=== PATIENT | female | born 1990 | race Caucasian/White ===

== ENCOUNTER 2017-07-11 23:42 | Emergency (ER) | payer SELFPAY ==
[~2017-07-11] VITALS: Ht 165.1 cm; Wt 81.0 kg
[2017-07-11 23:45] VITALS: Ht 165.1 cm; Wt 81.0 kg
== END 2017-07-12 00:45 | disposition left against medical advice (07) ==
LOC: FTE 23:42
DX: Z53.21 Procedure and treatment not carried out due to patient leaving prior to being seen by health care provider (principal)

== ENCOUNTER 2019-04-18 11:05 | Inpatient (IN) | payer MEDICAID ==
[~2019-04-18] VITALS: Ht 160 cm; Wt 89.0 kg
[~2019-04-18 11:05] MED LIST: CEPH-443 PO; PREN-93 PO
[2019-04-18 11:28] VITALS: BP 120/75; PULSE 84; RESP 18
[2019-04-18 11:29] VITALS: Ht 160 cm; Wt 89.0 kg
--- NOTE | 2019-04-18 12:02 | TRIAGE ---
OB Triage Datetime Report Generated by CPN: 04/18/2019 12:01 Datetime: 04/18/2019 11:31 Vaginal Exam Dilatation (cms): 1.0 Effacement (%): 50 Station: -2 Exam By: JES Vaginal Bleeding: None Cervix, Consistency: Moderate Cervix, Position: Posterior Datetime: 04/18/2019 11:25 Assessment Type: Triage Maternal Assessment Level of Consciousness: Keenly Alert, Responsive DTR's/Clonus: DTRs 2+; No Clonus Headache: Denies Blurred Vision: No Respiratory Effort: Unlabored; Regular Rhythm; Equal Expansion Breath Sounds, Left: Clear and Equal Breath Sounds, Right: Clear and Equal Nausea/Vomiting: Denies RUQ Epigastric Pain: Denies Lower Extremities Edema: None Degree: None Upper Extremities Edema: None Degree: None Facial Edema: None Fall Risk Assessment History of Falling: (0) No Secondary Diagnosis: (0) No Ambulatory Aid: (0) Bedrest/Nurse Assist IV Therapy: (0) No Gait: (0) Normal/Bedrest/Immobile Mental Status: (0) Oriented to Own Ability Fall Score: 0 Fall Risk Score Definition: No Risk: No action required Datetime: 04/18/2019 11:24 Time of Arrival: 04/18/2019 11:02 EGA: 39.3 Arrived By: Ambulatory Arrived From: Home Chief Complaint: PT. HERE C/O UC'S SINCE 0500 Movement: Present Contractions: Irregular Rupture of Membranes: Denies Vaginal Bleeding: Scant Vaginal Discharge: Denies Recent Sexual Intercouse: Denies Abdominal Trauma: Not Applicable Patient Complaints: Contractions; Cramping; Back Pain Time Provider Notified: 04/18/2019 11:58 Provider Notified: REBECCA Initial Plan: SVE/EFM Datetime: 04/18/2019 11:23 Labor Evaluation Monitor Mode: External Heart Rate Monitor Mode: External US
[2019-04-18] MEDS ORDERED: OXYTOCIN 30 UNITS/LR 500 ML IV SCH (12:30)
[2019-04-18] MEDS ORDERED: METHYLERGONOVINE 0.2 MG INJ IM PRN (12:30)
[2019-04-18] MEDS ORDERED: CARBOPROST 250 MCG INJ IM PRN (12:30)
[2019-04-18] MEDS ORDERED: CEFAZOLIN 2 GM/50 ML (PMX) 50 ML IVPB SCH (12:30)
[2019-04-18] MEDS ORDERED: OXYTOCIN 30 UNITS/LR 500 ML IV PRN (12:30)
[2019-04-18] MEDS ORDERED: MISOPROSTOL 200 MCG TAB PR PRN (12:30)
[2019-04-18] MEDS: BUTORPHANOL 2 MG INJ IV PRN ×2 (14:20→17:16)
[2019-04-18] MEDS: LACTATED RINGER'S 1,000 ML IV SCH ×2 (16:47→20:12)
[2019-04-18] MEDS ORDERED: TERBUTALINE 1 MG/ML INJ SC ONE (17:30)
--- NOTE | 2019-04-18 18:36 | HP ---
Date/Time of Note Date/Time of Note DATE: 04/18/19 TIME: 18:34 OB - History Hx of Present Free Text/Dictation term pregnacy in labor with previous c/s Care: Good Care Ultrasounds: Normal mid trimester US Obstetrical Complications: None Medical Complications: None Past Family/Social History * Past Medical, Surgical, Family and Obstetric Histories reviewed from chart. OB Admission Exam Vital Signs Vital Signs Vital Signs Date Temp Pulse Resp B/P (MAP) Pulse Ox O2 O2 Flow FiO2 Time Delivery Rate 04/18/19 98.1 84 18 120/75 Room Air 11:28 (90) Physical Exam HEENT: WNL Heart: Rhythm Normal Lungs: Clear, Equal Abdomen: WNL Extremities: Normal Reflexes: Normal Cervical Dilatation: 2cm Effacement: 25% Station: -3 Membranes: Intact Heart Rate: 130's Accelerations: Accelerations Present Decelerations: No Decelerations Varibility: Moderate Contractions on Admission: 6-10 Minutes Apart Intensity: Moderate Last 72 hours Lab Results CBC & BMP 04/18/19 13:00 OB Assessment/Plan Reason for admission: active labor Plan: Section NANCY FERNANDEZ MD Apr 18, 2019 18:36
--- NOTE | 2019-04-18 18:44 | PREAC ---
Date/Time of Note Date/Time of Note DATE: 04/18/19 TIME: 18:42 Anesthesia Eval and Record Evaluation Time Pre-Procedure Interview DATE: 04/18/19 TIME: 18:42 Age 29 Sex female NPO: 8 hrs Preoperative diagnosis IUP Planned procedure Repeat Csection Past Medical History Past Medical History: Includes GI: Obesity : : Surgery & Anesthesia Issues No known issue Meds Anticoagulation: No Beta Sangita within 24 hr: No Reason Beta Sangita not given: Pt. not on B-Sangita Reported Medications Vit No.124/Iron/FA ( Vitamin Tablet) 1 Each Tablet, 1 EACH PO DAILY, TAB 04/18/19 Current Medications Lactated Ringer's 1,000 ml @ 125 mls/hr Q8H IV Last administered on 04/18/19at 16:47; Admin Dose 125 MLS/HR; Start 04/18/19 at 12:12 Cefazolin Sodium/ Dextrose 50 ml @ 100 mls/hr ONCE IVPB ; Start 04/18/19 at 12:30 Oxytocin/Lactated Ringer's 500 ml @ 125 mls/hr POST IV ; Start 04/18/19 at 12:30 Oxytocin/Lactated Ringer's 500 ml @ 0 mls/hr ONCE PRN IV .VAGINAL BLEEDING; Start 04/18/19 at 12:30 Methylergonovine Maleate (Methergine) 0.2 mg ONCE PRN IM .VAGINAL BLEEDING; Start 04/18/19 at 12:30 Carboprost Tromethamine (Hemabate) 250 mcg ONCE PRN IM .VAGINAL BLEEDING; Start 04/18/19 at 12:30 Misoprostol (Cytotec) 1,000 mcg ONCE PRN AR .VAGINAL BLEEDING; Start 04/18/19 at 12:30 Butorphanol Tartrate (Stadol) 2 mg Q3H PRN IV PAIN Last administered on 9at 17:16; Admin Dose 2 MG; Start 04/18/19 at 12:30 Meds reviewed: Yes Allergies Coded Allergies: Sulfa (Sulfonamide Antibiotics) (Verified Allergy, Intermediate, SWELLING/RASH, 04/18/19) Allergies Reviewed: Yes Labs/Studies Labs Reviewed: Reviewed by anesthesiologist Result Diagram: 04/18/19 1300 Laboratory Tests 04/18/19 13:00 Blood Bank Test 04/18/19 13:00 Antibody Screen NEGATIVE Blood Type O POSITIVE Rh Immune Globulin Candidate NO test: Positive Studies: ECG Pre-procedure Exam Last vitals Vital Signs Date Temp Pulse Resp B/P (MAP) Pulse Ox O2 O2 Flow FiO2 Time Delivery Rate 04/18/19 98.1 84 18 120/75 Room Air 11:28 (90) Airway: Adequate mouth opening, Adequate thyromental dist Mallampati: Mallampati II Teeth: Normal Lung: Normal Heart: Normal ASA Physical Status ASA physical status: 2 Emergency: None Planned Anesthetic Neuraxial: Spinal Planned Pain Management Sub-arachniod narcotics, Parenteral pain med Pre-operative Attestations Prior to commencing anesthesia and surgery, the patient was re-evaluated, there was verification of: *The patient's identity *The results of appropriate recent lab work and preoperative vital signs *The above evaluation not changing prior to induction *Anesthetic plan, risk benefits, alternative and complications discussed with patient/family; questions answered; patient/family understands, accepts and wi shes to proceed. JORDAN GIBBS MD Apr 18, 2019 18:44
[2019-04-18] MEDS ORDERED: OXYTOCIN 30 UNITS/LR 500 ML BAG IV ONE (18:46)
[2019-04-18] MEDS ORDERED: OXYTOCIN 10 UNIT INJ ONE ×2 (18:46→19:18)
[2019-04-18] MEDS ORDERED: ONDANSETRON 4 MG INJ ONE (18:46)
[2019-04-18] MEDS ORDERED: morphine SULFATE/PF (10 MG/10 ML) INJ ONE (18:46)
[2019-04-18] MEDS ORDERED: PHENYLephrine 10 MG INJ ONE (19:03)
--- NOTE | 2019-04-18 19:39 | OPR ---
Operative Report Planned Procedure Procedure date Apr 18, 2019 Procedure(s) repeat c/s in labor Performed by see signature line Build Master: JARROD MERLOS MD Pre-procedure diagnosis repeat c/s [id number] Anesthesia Type: [id number] spinal Post-Procedure Post-procedure diagnosis same as pre op Findings Live Baby [], Apgars [] and [], weight [], position [], [] presentation []cord. Estimated Blood Loss: 600 - 700 mls Specimen(s) none Grafts/Implant(s) none Complication(s) none Procedure Description Under satisfactory [spinal ] anesthesia, the patient was prepped and draped and placed in a supine position, tilted to the left. Pfannenstiel incision was made, carried through the subcutaneous tissue. Bleeders brought under control with electrocautery. Fascia incised to the length of the incision. Rectus muscles from the fascia, divided midline. Peritoneum exposed, entered through a transverse incision. Exploration of abdomen revealed gravid uterus. Bladder flap was developed. Transverse incision was made in the lower segment of the uterus. Amniotic sac ruptured. [] amniotic fluid noted. [] Nasal oropharyngeal suction was performed. The baby was handed to the team for immediate attention. The placenta was delivered manually intact. Uterine cavity was cleaned with wet sponge and drainage established. Uterus closed in 2 layers us ing [] in continuous fashion. Peritoneal cavity irrigated with warm saline. Sponge, needle and instrument count reported to be correct. Abdominal peritoneum closed with one monocryl[] continuously. Rectus muscle approximated with []. Fascia closed with one monocryl[], and skin closed with cinthia. Estimated blood loss 700[]mL. Urine bag contained []mL of urine NANCY FERNANDEZ MD Apr 18, 2019 19:39
--- NOTE | 2019-04-18 19:53 | PAC ---
Date/Time of Note Date/Time of Note DATE: 04/18/19 TIME: 19:52 Post-Anesthesia Notes Post-Anesthesia Note Last documented vital signs Vital Signs Date Temp Pulse Resp B/P (MAP) Pulse Ox O2 O2 Flow FiO2 Time Delivery Rate 04/18/19 98.1 84 18 120/75 Room Air 11:28 (90) Activity: WNL Respiratory function: WNL Cardiovascular function: WNL Mental status: Baseline Pain reasonably controlled: Yes Hydration appropriate: Yes Nausea/Vomiting absent: Yes Comments BP:112/56, P:78, Spo2:100%, T:98,9 JORDAN GIBBS MD Apr 18, 2019 19:53
[2019-04-18] MEDS ORDERED: NALOXONE (0.4 MG/ML) INJ IV PRN (20:00)
[2019-04-18] MEDS ORDERED: morphine 2 MG INJ IV PRN (20:00)
[2019-04-18] MEDS ORDERED: ONDANSETRON 4 MG INJ IV PRN (20:00)
[2019-04-18] MEDS ORDERED: DIPHENHYDRAMINE 50 MG INJ IV PRN (20:00)
[2019-04-18] MEDS: KETOROLAC 30 MG INJ IV PRN (22:00)
[2019-04-19 00:30] VITALS: BP 114/59; PULSE 85; RESP 19
[2019-04-19] MEDS ORDERED: OXYTOCIN 30 UNITS/LR 500 ML IV SCH (00:48)
[2019-04-19] MEDS ORDERED: LACTATED RINGER'S 1,000 ML IV SCH (00:48)
[2019-04-19] MEDS ORDERED: MISOPROSTOL 200 MCG TAB PR PRN (01:00)
[2019-04-19] MEDS ORDERED: NACL 0.9% 3 ML SYG IV SCH (01:00)
[2019-04-19] MEDS ORDERED: METHYLERGONOVINE 0.2 MG INJ IM PRN (01:00)
[2019-04-19] MEDS ORDERED: LANOLIN HPA 1 PKT TOP PRN (01:00)
[2019-04-19] MEDS ORDERED: CARBOPROST 250 MCG INJ IM PRN (01:00)
[2019-04-19] MEDS ORDERED: NA PHOSPHATE/BIPHOS 133 ML ENEMA PR PRN (01:00)
[2019-04-19] MEDS ORDERED: OXYTOCIN 30 UNITS/LR 500 ML IV PRN (01:00)
[2019-04-19] MEDS: LACTATED RINGER'S 1,000 ML IV SCH ×3 (02:44→19:50)
[2019-04-19 04:00] VITALS: BP 109/63; PULSE 17; RESP 18
[2019-04-19] MEDS: KETOROLAC 30 MG INJ IV PRN ×3 (05:26→17:07)
--- NOTE | 2019-04-19 07:50 | QN ---
Documentation Comment doing well vss abd soft d/c IV OOB NANCY FERNANDEZ MD Apr 19, 2019 07:50
--- NOTE | 2019-04-19 07:51 | DS ---
Date/Time of Note Date/Time of Note DATE: 04/19/19 TIME: 07:51 Discharge Summary Admission/Discharge Info Admit Date/Time Apr 18, 2019 at 12:20 Discharge Date/Time Discharge Diagnosis term Patient Condition: Stable Procedures repeat c/s Hospital Course unremarkable Home Meds Reported Medications Vit No.124/Iron/FA ( Vitamin Tablet) 1 Each Tablet, 1 EACH PO DAILY, TAB 04/18/19 Primary Care Provider Care Physician No Primary Pending Labs Laboratory Tests Test 04/18/19 13:00 04/19/19 07:03 White Blood Count 10.3 10^3/ul (4.8-10.8) Red Blood Count 3.53 10^6/ul (4.20-5.40) Hemoglobin 10.6 g/dl (12.0-16.0) Hematocrit 31.9 % (37.0-47.0) Mean Corpuscular Volume 90.4 fl (82.0-101.0) Mean Corpuscular Hemoglobin 30.0 pg (29.0-33.0) Mean Corpuscular 33.2 g/dl (32.0-37.0) Hemoglobin Concent Red Cell Distribution Width 14.3 % (11.5-14.5) Platelet Count 195 10^3/UL (140-415) Mean Platelet Volume 9.3 fl (7.4-10.4) Immature Granulocytes % 0.400 % (0.001-0.429) Neutrophils % 72.0 % (39.0-77.0) Lymphocytes % 19.9 % (15.0-51.0) Monocytes % 6.9 % (0.0-11.0) Eosinophils % 0.4 % (0.0-7.0) Basophils % 0.4 % (0.0-2.0) Nucleated Red Blood Cells % 0.0 /100WBC (0.0-0.0) Immature Granulocytes # 0.040 10^3/ul (0.0-0.031) Neutrophils # 7.4 10^3/ul (1.6-7.5) Lymphocytes # 2.1 10^3/ul (0.8-2.9) Monocytes # 0.7 10^3/ul (0.3-0.9) Eosinophils # 0.0 10^3/ul (0.0-0.5) Basophils # 0.0 10^3/ul (0.0-0.1) Nucleated Red Blood Cells # 0.0 10^3/ul (0.0-0.0) Prothrombin Time 13.5 Sec (11.9-14.9) Prothrombin Time Ratio 1.1 INR International 1.02 Normalized Ratio Activated Partial Thromboplast 28.1 Sec (23.0-35.0) Time Rapid Plasma Reagin NONREACTIVE (NR) Lab Scanned Report [facility] [id number] NANCY FERNANDEZ MD Apr 19, 2019 07:51
[2019-04-19 08:30] VITALS: BP 99/55; PULSE 84; RESP 17
[2019-04-19 12:30] VITALS: BP 95/53; PULSE 73; RESP 16
[2019-04-19 17:00] VITALS: BP 111/65; PULSE 76; RESP 18
[2019-04-19 20:00] VITALS: BP 110/66; PULSE 84; RESP 18
[2019-04-19] MEDS: IBUPROFEN 800 MG TAB PO SCH (22:00)
[2019-04-20 04:00] VITALS: BP 103/60; PULSE 75; RESP 20
[2019-04-20] MEDS: LACTATED RINGER'S 1,000 ML IV SCH ×2 (04:12→12:12)
[2019-04-20] MEDS: IBUPROFEN 800 MG TAB PO SCH ×3 (06:16→22:24)
[2019-04-20] MEDS: HYDROCODONE/APAP (5/325) TAB PO PRN ×4 (07:28→23:35)
[2019-04-20 08:20] VITALS: BP 94/51; PULSE 74; RESP 16
[2019-04-20 16:00] VITALS: BP 108/68; PULSE 78; RESP 17
--- NOTE | 2019-04-20 19:53 | PN ---
Date/Time of Note Date/Time of Note DATE: 04/20/19 TIME: 19:51 OB Subjective Subjective Subjective POD#2 Patient is doing well. She denies nausea, vomiting, shortness of breath, chest pain, headache. She has been ambulating without difficulty, tolerating regular diet. Pain is well controlled on current medications OB Objective Objective Objective Vital Signs Date Temp Pulse Resp B/P (MAP) Pulse Ox O2 O2 Flow FiO2 Time Delivery Rate 04/20/19 97.9 78 17 108/68 Room Air 16:00 (81) 04/19/19 100 17:00 General: AAO X 3, comfortable, NAD, appropriate mood and affect. ABD: +BS. Soft, non-tender. Uterus 2 cm below umbilicus Incision: Clear, dry, intact. No erythema, drainage or induration. Flank: No CVA tenderness (B/L) LE: Mild edema. No clubbing, cyanosis, thigh or calf tenderness (B/L). Homans 'sign is negative OB Assessment/Plan Other plan: 29 years old s/p delivery POD#2 - AF, VSS - Baby is doing well, at bed side. She is bonding well - Continue care - Discharge home tomorrow - Rx and instruction given - Follow up in one and 6 weeks JOSE ALEJANDRO CRUZ Apr 20, 2019 19:53
[2019-04-20 20:00] VITALS: BP 118/75; PULSE 79; RESP 16
[2019-04-21 04:00] VITALS: BP 90/50; PULSE 83; RESP 20
[2019-04-21] MEDS: IBUPROFEN 800 MG TAB PO SCH (06:32)
[2019-04-21] MEDS: HYDROCODONE/APAP (5/325) TAB PO PRN ×2 (08:38→12:15)
[2019-04-21 08:40] VITALS: BP 101/67; PULSE 74; RESP 17
[2019-04-21] MEDS ORDERED: DIPHTH/TET/ACEL PERTUSS (ADULT) 0.5 ML VIAL IM* ONE (09:00)
[2019-04-21] MEDS ORDERED: MEASLES,MUMPS,RUBELLA VACCINE INJ SC* ONE (09:00)
== END 2019-04-21 14:28 | disposition home or self-care (01) | DRG 788 ==
LOC: OBT 11:05 → L-D 11:07 → OBT 12:10 → L-D 12:20 → PP1 04-19 00:24
PROVIDERS: ADMIT Obstetrics & Gynecology; ATTEND Obstetrics & Gynecology
PROC: 10D00Z1 Extraction of Products of Conception, Low, Open Approach (ICD-10-PCS; principal; 2019-04-18 18:45)
DX: O65.5 Obstructed labor due to abnormality of maternal pelvic organs (principal); O34.211 Maternal care for low transverse scar from previous cesarean delivery; Z3A.39 39 weeks gestation of pregnancy; Z37.0 Single live birth
CPT/HCPCS: 85025; 85610; 85730; 86592; 86850; 86900; 86901; 99464; G0463; J0595; J0690; J1885; J2210; J2274; J2370; J2405; J2590; J3105; J7120

== ENCOUNTER 2019-04-23 14:40 | Emergency (ER) | payer MEDICAID ==
[~2019-04-23] VITALS: Ht 167.6 cm; Wt 83.0 kg
[2019-04-23 15:02] VITALS: BP 110/58; PULSE 87; RESP 18; Ht 167.6 cm; Wt 83.0 kg
--- NOTE | 2019-04-23 15:17 | ERD ---
ER Documentation Chief Complaint Chief Complaint WOUND REOPEN HPI 21-year-old female presents with an opening from her wound. She is C- section 5 days ago. She has vomiting, fevers, bleeding or discharge. ROS All systems reviewed and are negative except as per history of present illness. Medications Home Meds Active Scripts Cephalexin* (Keflex*) 500 Mg Capsule, 500 MG PO QID for 7 Days, CAP Prov:YESIKA SALAZAR MD 04/23/19 Reported Medications Vit No.124/Iron/FA ( Vitamin Tablet) 1 Each Tablet, 1 EACH PO DAILY, TAB 04/18/19 Allergies Allergies: Coded Allergies: Sulfa (Sulfonamide Antibiotics) (Verified Allergy, Intermediate, SWELLING/RASH, 04/18/19) PMhx/Soc History of Surgery: No Anesthesia Reaction: No Hx Neurological Disorder: No Hx Respiratory Disorders: No Hx Cardiac Disorders: No Hx Psychiatric Problems: No Hx Miscellaneous Medical Probl: Yes (Tx for UTI) Hx Alcohol Use: No Hx Substance Use: No Hx Tobacco Use: No Smoking Status: Never smoker FmHx Family History: No diabetes, No coronary disease, No other Physical Exam Vitals Vital Signs Date Temp Pulse Resp B/P (MAP) Pulse Ox O2 O2 Flow FiO2 Time Delivery Rate 04/23/19 98.5 87 18 110/58 98 15:02 (75) Physical Exam Const: No acute distress Head: Atraumatic Eyes: Normal Conjunctiva ENT: Normal External Ears, Nose and Mouth. Neck: Full range of motion. No meningismus. Resp: Clear to auscultation bilaterally Cardio: Regular rate and rhythm, no murmurs Abd: Soft, non tender, non distended. Normal bowel sounds. Healing cease section scar. In the central part of the wound is approximate 1.5 cm dehiscence of the superficial epidermis. There is a beefy granulating tissue without bleeding or discharge. No penetration to the fascia. There is no erythema, discharge. There is no deep abdominal tenderness. Skin: No petechiae or rashes Back: No midline or flank tenderness Ext: No cyanosis, or edema Neur: Awake and alert Psych: Normal Mood and Affect Procedures/MDM She presents with signs and symptoms of an opening of her wound fully due to a small superficial seroma. There is no signs of significant cellulitis, necrotizing fasciitis, deep abdominal tenderness to suggest abscess, significant complications due to her . Wound was redressed and patient was given instructions on wound care wet-to-dry dressings and OB follow-up for management of her wound. She should return for fevers, vomiting, worsening redness, new worsening symptoms. The patient was stable with no new complaints during the ER course. Clinically, there is no current evidence to suggest meningitis, sepsis, acute abdomen, pneumonia, stroke, acute coronary syndrome, pulmonary embolism, aortic dissection or any other emergent condition appearing to require further evaluation or hospitalization. Patient counseled regarding my diagnostic impression and care plan. Prior to discharge all questions answered. Pt agrees with treatment plan and understands strict return precautions. Pt is instructed to follow up with primary care provider within 24-48 hours. Precautionary instructions provided including instructions to return to the ER if not improving or for any worsening or changing symptoms or concerns. Disclaimer: Inadvertent spelling and grammatical errors are likely due to EHR/dictation software use and do not reflect on the overall quality of patient care. Also, please note that the electronic time recorded on this note does not necessarily reflect the actual time of the patient encounter. Departure Diagnosis: Primary Impression: Seroma Condition: Stable Patient Instructions: Seroma, Postsurgical Additional Instructions: Wound should slowly closed. Dressing changes at home. Use soap and water to clean the wound and pat dry. See [facility] for follow-up this week. Recheck for worsening redness, fevers, vomiting, new or worsening symptoms. YESIKA SALAZAR MD Apr 23, 2019 15:17
== END 2019-04-23 15:33 | disposition home or self-care (01) ==
LOC: FTE 14:40
DX: O90.2 Hematoma of obstetric wound (principal)
CPT/HCPCS: 99283